=== PATIENT | male | born 2000 | race Hispanic/Latino ===

== ENCOUNTER → 2021-04-05 | Outpatient (CLI) | payer BC, MEDICAID | END | disposition home or self-care (01) | LOC: RAH 11:07 | PROVIDERS: ATTEND Family Medicine | DX: R13.10 Dysphagia, unspecified (principal); J18.9 Pneumonia, unspecified organism; Z87.01 Personal history of pneumonia (recurrent) | CPT/HCPCS: 71046; 74230; 92611 ==

== ENCOUNTER 2022-09-19 08:45 | Day surgery (SDC) | payer BC, MEDICAID ==
[~2022-09-19] VITALS: Ht 170.2 cm; Wt 44.0 kg
[~2022-09-19 08:45] MED LIST: CHOL500051 PO; CLOB20TA15 PO; CLON1TAB12 PO; L-CARNITINE; MAGN500C4 PO; PERA8TAB PO; SODIUM CHLORIDE; TOPI25TA48 PO; UBIQUINOL; ZINC; [UNRECOGNIZED DRUG - CODE] PO; [UNRECOGNIZED DRUG - OTHER]
[2022-09-19] MEDS ORDERED: CHOL500045 PO (10:21)
[2022-09-19] MEDS ORDERED: 0.9%NACL 1000ML 1,000 ML IV ONE (11:13)
[2022-09-19 11:39] LABS: BASOPHILS % (AUTO) 0.5 % (0.0-5.0); EOSINOPHILS % (AUTO) 1.8 % (0.0-8.0); HEMATOCRIT 33.8 % (42-54); LYMPHOCYTES % (AUTO) 38.1 % (21.0-51.0); MEAN CORPUSCULAR HGB CONC 34.6 g/dL (32.0-36.0); MEAN CORPUSCULAR VOLUME 89.4 fL (79-99); MONOCYTES % (AUTO) 9.5 % (3.0-13.0); NEUTROPHILS % (AUTO) 50.1 % (40.0-77.0); PLATELET COUNT (AUTO) 240 K/uL (130-400); RED BLOOD CELL COUNT(AUTO) 3.78 MIL/uL (4.50-6.20); RED CELL DISTRIBUTION WIDTH 12.3 % (11.0-15.5); WHITE BLOOD COUNT (AUTO) 4.3 K/uL (4.8-10.8)
[2022-09-19 11:52] LABS: INR 0.96 (0.85-1.15); PROTHROMBIN TIME 10.5 SEC (9.6-11.6)
[2022-09-19] MEDS ORDERED: PROPOFOL 10 MG/ML 20ML VIAL IV ONE (11:57)
[2022-09-19 12:02] LABS: ALBUMIN 3.9 g/dL (3.5-5.0); CREATININE 0.7 mg/dL (0.5-1.5); POTASSIUM 3.7 mmol/L (3.5-5.1); THYROID STIMULATING HORMONE 2.69 uIU/mL (0.36-3.74); TOTAL PROTEIN, SERUM 7.7 g/dL (6.0-8.3)
[2022-09-19 13:15] VITALS: BP 114/73
[2022-09-19 13:20] VITALS: BP 115/71
[2022-09-19 13:25] VITALS: BP 117/74
[2022-09-19 13:30] VITALS: BP 119/74
[2022-09-19 13:45] VITALS: BP 112/74
[2022-09-19 21:31] LABS: HEPATITIS A IGM ANTIBODY Non-Reactive (Nonreactive); HEPATITIS B SURFACE ANTIGEN Non-Reactive (Nonreactive)
[2022-09-19 21:32] LABS: HEPATITIS C ANTIBODY Non-Reactive (Nonreactive)
[2022-09-19 21:33] LABS: HEPATITIS B CORE IGM ANTIBODY Non-Reactive (Negative)
[2022-09-20 08:15] LABS: HEPATITIS A ANTIBODY TOTAL Positive (Negative)
[2022-09-20 15:13] LABS: ALPHA-1-ANTITRYPSIN 129 mg/dL (95-164)
== END 2022-09-19 13:45 | disposition home or self-care (01) ==
LOC: DAH 08:45
PROVIDERS: ATTEND Internal Medicine Gastroenterology
DX: D50.9 Iron deficiency anemia, unspecified (principal); Z20.822 Contact with and (suspected) exposure to COVID-19; K21.00 Gastro-esophageal reflux disease with esophagitis, without bleeding; R63.0 Anorexia; R74.01 Elevation of levels of liver transaminase levels; K29.50 Unspecified chronic gastritis without bleeding; Z98.890 Other specified postprocedural states; Z90.89 Acquired absence of other organs; Z82.49 Family history of ischemic heart disease and other diseases of the circulatory system; Z83.3 Family history of diabetes mellitus; Z80.0 Family history of malignant neoplasm of digestive organs; Z80.8 Family history of malignant neoplasm of other organs or systems; Z83.438 Family history of other disorder of lipoprotein metabolism and other lipidemia; Z68.1 Body mass index [BMI] 19.9 or less, adult
CPT/HCPCS: 43248; 43239; 87635; 80061; 82150; 84443; 83540; 80053; 82728; 83690; 85025; 85610; 82390; 86038; 82103; 86706; 87902; 87340; 87520; 86255 ×4; 86704; 86705; 86708; 86709; 36415; 83516; 87522; J7030 ×2; J2704; A4620; A4215 ×2; A4223; A4222; A4221; A4663; A4216; A4606; 86215; 86235